=== PATIENT | female | born 1965 | race Caucasian/White ===

== ENCOUNTER 2017-04-06 11:56 | Emergency (ER) | payer OTHER, SELFPAY ==
[~2017-04-06] VITALS: Ht 162.6 cm; Wt 90.7 kg
[~2017-04-06 11:56] MED LIST: KLONOPIN0.5 MG PO; LEXAPRO20 MG PO; MOBIC15 M1 PO; NEURONTIN100 MG PO; XANAX0.25 MG PO
== END 2017-04-06 13:20 | disposition short-term general hospital (02) ==
LOC: ER 11:56 → LAB 11:58 → ER 11:58
DX: R59.0 Localized enlarged lymph nodes (principal); M54.2 Cervicalgia; Z79.899 Other long term (current) drug therapy; Z88.2 Allergy status to sulfonamides; Z88.5 Allergy status to narcotic agent